=== PATIENT | male | born 1955 | race Caucasian/White ===

== ENCOUNTER → 2021-06-06 | Outpatient (CLI) | payer MEDICARE ==
--- NOTE | 2021-06-07 08:15 | US ---
EXAMINATION TYPE: US thyroid st tissue head/neck DATE OF EXAM: 06/06/2021 COMPARISON: US 2015 CLINICAL HISTORY: E04.1 thyroid nodule. Thyroid nodules, history thyroid FNA GLAND SIZE: Right Lobe: 4.8 x 1.5 x 1.3 cm Overall Parenchyma: heterogenous Left Lobe: 3.5 x 1.0 x 1.1 cm Overall Parenchyma: heterogeneous Isthmus Thickness: 0.2 cm NODULES RIGHT: # of nodules measured on right: multiple subcentimeter nodules with largest described below 1. 0.6 X 0.4 x 0.4 cm, upper lateral, solid or almost completely solid, hypoechoic nodule, which is wider than tall, with smooth margins, without echogenic foci. Prior size: 0.4 x 0.3 x 0.3 cm LEFT: # of nodules measured on left: 0 ISTHMUS: # of nodules measured in the isthmus: 1 1. 1.6 X 1.0 x 1.5 cm solid or almost completely solid, isoechoic nodule, which is wider than tall, with smooth margins, without echogenic foci. TR 3 Prior size: 1.4 x 0.6 x 1.4 cm Bilateral neck scanned, no evidence of lymphadenopathy. IMPRESSION: Mildly suspicious nodule. Follow-up exam in one year is recommended. 2017 ACR TI-RADS LEVEL: TR-RADS 3 - Mildly Suspicious: Follow if > 1.5 cm, FNA if > 2.5 cm *Highest TI-RADS level nodule reported
== END | disposition home or self-care (01) ==
LOC: RADUSWWP 16:03
PROVIDERS: ATTEND Otolaryngology
DX: E04.2 Nontoxic multinodular goiter (principal)
CPT/HCPCS: 76536